=== PATIENT | female | born 1930 ===

== ENCOUNTER 2016-08-11 12:50 | Outpatient (RCR) | payer MEDICARE, BC ==
[~2016-08-11] VITALS: Ht 162.6 cm; Wt 45.4 kg
[2016-08-11] MEDS ORDERED: Lidocaine 4% Top Soln 50ml TOPIC ONE (16:45)
== END 2016-08-23 | disposition home or self-care (01) ==
LOC: WCC 12:50
DX: L89.324 Pressure ulcer of left buttock, stage 4 (principal); M86.9 Osteomyelitis, unspecified; Z79.82 Long term (current) use of aspirin; Z90.710 Acquired absence of both cervix and uterus; G20 Parkinson's disease; M06.9 Rheumatoid arthritis, unspecified
CPT/HCPCS: 11044; 87070; 87181; 87205

== ENCOUNTER → 2016-08-18 | Outpatient (CLI) | payer MEDICARE, BC ==
[~2016-08-18] VITALS: Ht 160 cm; Wt 47.6 kg
[~2016-08-18] MED LIST: Heparin 2000 units/Ns 1000ml INJ ONE; Lidocaine 1% Plain 30 ml INJ ONE; Sodium Bicarbonate 8.4% 50ml Inj IV ONE
--- NOTE | 2016-08-18 15:22 | Diagnostic Imaging Report ---
Indications: Needs long-term IV access Technique: Ultrasound confirms patent compressible left brachial vein. Total sterile technique, including sterile probe cover and sterile gel, hat, mask,, sterile gown, large sterile drape, and preparation with 2% chlorhexidine utilized. Local anesthesia with 1% lidocaine. Under real-time ultrasound guidance, puncture brachial vein using 21-gauge needle, documented and archived, passage 0.018 guidewire under direct fluoroscopy, which was used to determine appropriate catheter length, exchange for 5 Chinese peel-away sheath. 5 Chinese Bard dual-lumen power PICC cut to 35 cm. It was inserted through the peel-away sheath. Peel-away sheath and guidewire removed. Catheter fixed to the skin. Both catheter ports aspirated and flushed. Patient tolerated procedure well, without immediate complication. Digital radiograph documents satisfactory catheter tip position, at the cavoatrial junction. Total fluoroscopy time 0.6 minutes. Total dose area product 8.1 dGycm2 Impression: Successful placement of left arm PICC under sonographic and fluoroscopic guidance, as described above.
--- NOTE | 2016-08-18 15:25 | Diagnostic Imaging Report ---
Indication: PAIN, left buttock wound Technique: IV administration 24.5 mCi 99M technetium MDP. Flow, blood pool, and static images obtained over the pelvis using a dual head scanner Comparison: None Findings: Flow images are unremarkable, do not demonstrate any abnormal hyperemia. Blood pool images are likewise unremarkable, without evidence of any significant increased blood pool activity. Static images demonstrate some obscuration of the pelvic region arteries are within the bladder. Per technologist, patient was unable to void further. However, no abnormal sacral, coccygeal, ischial, or other increased pelvic activity this is demonstrated. Normal renal activity is noted. Impression: No scintigraphic evidence of acute osteomyelitis
--- NOTE | 2016-08-18 21:18 | Consultation ---
DATE OF CONSULTATION: 08/18/2016 INFECTIOUS DISEASES CONSULTATION REQUESTING PHYSICIAN: Que Cheek M.D. REASON FOR CONSULTATION: Left buttock pressure ulcer with underlying osteomyelitis of the ischium due to Proteus mirabilis and Klebsiella pneumonia. Recommendation for antibiotics treatment. HISTORY OF PRESENT ILLNESS: The patient is an 86-year-old female with a past medical history of Parkinson disease and rheumatoid arthritis, who had left buttock and sacral stage IV pressure ulcer for long time was managed by wound care surgeons as an outpatient and transferred her care to [facility] wound care recently. The patient had deep culture done from her left buttock wound grew two different strain bacteria including Proteus mirabilis and Klebsiella pneumonia. her wound was not getting better with local wound care. So, I was consulted by the wound care provider for antibiotics recommendation regarding her left buttock decubitus wound infection with possible underlying osteomyelitis. As the patient is a poor historian, cannot provide good history, history was mainly obtained from the family at the bedside and the nursing staff. REVIEW OF SYSTEMS: Unable to obtain at this point. PAST MEDICAL HISTORY: Significant for Parkinson disease and rheumatoid arthritis. PAST SURGICAL HISTORY: She had hysterectomy and surgical debridement of the left buttock wound. SOCIAL HISTORY: The patient lives with her daughters. Denied any drugs, tobacco, or alcohol. FAMILY HISTORY: Not contributory. ALLERGIES: She has no known drug allergy. MEDICATION: She is on, 1. Remeron. 2. Aspirin. 3. Comtan. 4. Requip. 5. Sinemet. 6. Stalevo. LABORATORY DATA: Laboratories are not available today. Microbiology, the patient had left buttock wound culture grew Proteus mirabilis resistant to quinolone and Bactrim and Klebsiella pneumonia resistant to ampicillin. Radiology, bone scan of the pelvis showed no evidence of acute osteomyelitis in the pelvic area. PHYSICAL EXAMINATION: GENERAL: An elderly female with dementia, lying in bed. Awake, alert, and comfortable, not in distress. HEENT: Normocephalic and atraumatic. Pupils both reactive to light equally. Moist oral mucosa. No exudate. NECK: Supple. No lymphadenopathy. CARDIOVASCULAR: Regular rate and rhythm. No murmur or gallop. LUNGS: Clear bilaterally. No wheezing or rhonchi. ABDOMEN: Soft, nontender, and nondistended. Positive bowel sounds. No hepatosplenomegaly. No ascites. EXTREMITIES: No edema or cyanosis. SKIN: She had left buttock pressure ulcer stage IV, measure about 2 cm in length x 1 cm width x 0.9 cm deep. She had muscle and bone exposed. No tunneling, but undermining has been noted at 12 o'clock with a distance of 2.9 cm. There was also moderate amount of serosanguineous drainage, which has a mild odor. ASSESSMENT AND PLAN: 1. Left buttock pressure ulcer stage IV with possible underlying osteomyelitis, status post surgical debridement with tissue culture positive for Proteus mirabilis and Klebsiella pneumonia. We will treat the patient with ceftriaxone for six weeks with continuous local wound care and debridement as needed. Since her bone is exposed and her wound is deep with tunneling, the patient was advised to keep the wound clean and dry and off-loading all the time. The patient to be continued to monitored by wound care service at [facility] [place]. We will monitor weekly laboratories. Continue local PICC line care as needed as per home health care services. 2. Rheumatoid arthritis, stable. Continue medication. 3. Parkinson disease, stable. Continue medications as before. Follow up with neurology. Jose Chopra M.D. DR: JEZ JOB#: [id number] CC: YU
== END | disposition home or self-care (01) ==
LOC: MRI 08-11 14:14 → NUM 09:14
DX: R52 Pain, unspecified (principal); Z79.899 Other long term (current) drug therapy
CPT/HCPCS: 36569; 76937; 78315; A4641; J1644; J2001; J3490

== ENCOUNTER 2016-08-25 11:55 | Outpatient (RCR) | payer MEDICARE, BC ==
[~2016-08-25] VITALS: Ht 162.6 cm; Wt 45.4 kg
[2016-09-15] MEDS ORDERED: Lidocaine 4% Top Soln 50ml TOPIC ONE (17:00)
== END 2016-09-23 | disposition home or self-care (01) ==
LOC: WCC 11:55
DX: L89.324 Pressure ulcer of left buttock, stage 4 (principal); Z90.710 Acquired absence of both cervix and uterus; M06.9 Rheumatoid arthritis, unspecified; G20 Parkinson's disease; Z79.82 Long term (current) use of aspirin
CPT/HCPCS: 11043; 11044; 11100; 87070; 87181; 87205; 97605

== ENCOUNTER → 2016-09-01 | Outpatient (CLI) | payer MEDICARE, BC ==
[2016-09-01 12:57] LABS: EOSINOPHILS % (AUTO) 2.3 % (0.0-3.0); LYMPHOCYTES % (AUTO) 18.4 % (20.0-45.0); MEAN CORPUSCULAR HGB CONC 31.5 G/DL (32.0-36.0); MEAN CORPUSCULAR VOLUME 92 FL (80-99); MEAN PLATELET VOLUME 6.6 FL (6.5-10.1); MONOCYTES % (AUTO) 8.3 % (1.0-10.0); PLATELET COUNT 410 K/UL (150-450); RED CELL DISTRIBUTION WIDTH 14.9 % (11.6-14.8); WHITE BLOOD COUNT 6.8 K/UL (4.8-10.8)
[2016-09-01 13:23] LABS: ALANINE AMINOTRANSFERASE 5 U/L (3-33); ALBUMIN/GLOBULIN RATIO 1.1 (1.0-2.7); ANION GAP 15 (5-15); ASPARTATE AMINO TRANSFERASE 22 U/L (5-40); CARBON DIOXIDE 26 mEQ/L (20-30); CHLORIDE 96 mEQ/L (98-107); CREATININE 0.5 mg/dL (0.5-0.9); HEMOLYSIS 8; POTASSIUM 4.1 mEQ/L (3.4-4.9); SODIUM 137 mEQ/L (135-145); TOTAL PROTEIN 6.4 g/dL (6.6-8.7)
--- NOTE | 2016-09-01 16:08 | Infectious Diseases Prog Note ---
Assessment/Plan Problems: (1) Buttock wound Assessment & Plan: of the left buttock , with undermining, her wound culture grew proteus mirabilis , and klebsiella pneumonia both sensitive to ceftriaxon , will treat for 6 weeks with ceftriaxon and flagyl , since her wound is deep with undermining , recommend deep tissue culture and surgical debridement, continue local wound care as per wound care. (2) Rheumatoid arthritis Assessment & Plan: continue medications and follow up with rheumatology (3) Parkinson disease Assessment & Plan: continue meds , follow up with neurology Subjective Constitutional: Denies: anorexia, chills, drenching sweats, fatigue, fever, no symptoms, other HEENT: Denies: congestion, coryza, dysphagia, hearing change, no symptoms, other, visual change Respiratory: Denies: dry cough, no symptoms, other, productive cough, shortness of breath Cardiovascular: Denies: chest pain, dyspnea on exertion, no symptoms, other, palpitations Gastrointestinal/Abdominal: Denies: bloating, blood in stool, constipation, diarrhea, nausea, no symptoms, other, vomiting Genitourinary: Denies: dysuria, frequency, hematuria, last menstrual period, no symptoms, nocturia, other, vaginal bleed/discharge Neurologic: Reports: weakness Psychiatric: Denies: anxiety, depression, no symptoms, other Skin: Reports: ulcer Allergies: Coded Allergies: NO KNOWN DRUG ALLERGIES (Verified Allergy, Unknown, 08/11/16) Objective General Appearance: WD/WN, no acute distress HEENT: normocephalic, atraumatic, anicteric, mucous membranes moist Respiratory/Chest: chest wall non-tender, lungs clear, normal breath sounds, no respiratory distress, no accessory muscle use Cardiovascular: normal peripheral pulses, normal rate, regular rhythm, no gallop/murmur Abdomen: normal bowel sounds, soft, non tender, no organomegaly, non distended , no mass Extremities: no cyanosis, no clubbing Skin: no rash, no lesions, ulcers - left buttock wound with undermining Laboratory Tests Test 09/01/16 12:41 White Blood Count 6.8 K/UL (4.8-10.8) Red Blood Count 4.00 M/UL (4.20-5.40) L Hemoglobin 11.6 G/DL (12.0-16.0) L Hematocrit 36.9 % (37.0-47.0) L Mean Corpuscular Volume 92 FL (80-99) Mean Corpuscular Hemoglobin 29.0 PG (27.0-31.0) Mean Corpuscular Hemoglobin Concent 31.5 G/DL (32.0-36.0) L Red Cell Distribution Width 14.9 % (11.6-14.8) H Platelet Count 410 K/UL (150-450) Mean Platelet Volume 6.6 FL (6.5-10.1) Neutrophils (%) (Auto) 70.0 % (45.0-75.0) Lymphocytes (%) (Auto) 18.4 % (20.0-45.0) L Monocytes (%) (Auto) 8.3 % (1.0-10.0) Eosinophils (%) (Auto) 2.3 % (0.0-3.0) Basophils (%) (Auto) 1.0 % (0.0-2.0) Sodium Level 137 mEQ/L (135-145) Potassium Level 4.1 mEQ/L (3.4-4.9) Chloride Level 96 mEQ/L (98-107) L Carbon Dioxide Level 26 mEQ/L (20-30) Anion Gap 15 (5-15) Blood Urea Nitrogen 17 mg/dL (7-23) Creatinine 0.5 mg/dL (0.5-0.9) Estimat Glomerular Filtration Rate mL/min (>60) Glucose Level 120 mg/dL (74-106) H Calcium Level 9.0 mg/dL (8.6-10.2) Total Bilirubin 0.2 mg/dL (0.0-1.2) Aspartate Amino Transf (AST/SGOT) 22 U/L (5-40) Alanine Aminotransferase (ALT/SGPT) 5 U/L (3-33) Alkaline Phosphatase 75 U/L (35-104) Total Protein 6.4 g/dL (6.6-8.7) L Albumin 3.4 g/dL (3.5-5.2) L Globulin 3.0 g/dL Albumin/Globulin Ratio 1.1 (1.0-2.7) Jose Chopra M.D. Sep 01, 2016 16:08
--- NOTE | 2016-09-08 17:17 | Infectious Diseases Prog Note ---
Assessment/Plan Problems: (1) Osteomyelitis of pelvic region Assessment & Plan: with bone culture positive for klebsiella oxytoca and enterococcus faecalis amp sensitive , will start vancomycin for 6 weeks , and monitor trough to keep between 15-20. continue local wound care and off loading (2) Buttock wound Assessment & Plan: of the left buttock , with undermining, her wound culture grew proteus mirabilis , and klebsiella pneumonia both sensitive to ceftriaxon , will treat for 6 weeks with ceftriaxon and flagyl , since her wound is deep with undermining , continue local wound care as per wound care team . (3) Rheumatoid arthritis Assessment & Plan: continue medications and follow up with rheumatology (4) Parkinson disease Assessment & Plan: continue meds , follow up with neurology Subjective Constitutional: Denies: anorexia, chills, drenching sweats, fatigue, fever, no symptoms, other HEENT: Denies: congestion, coryza, dysphagia, hearing change, no symptoms, other, visual change Respiratory: Denies: dry cough, no symptoms, other, productive cough, shortness of breath Breasts: Denies: discharge, no symptoms, other, swelling, tenderness Cardiovascular: Denies: chest pain, dyspnea on exertion, no symptoms, other, palpitations Gastrointestinal/Abdominal: Denies: bloating, blood in stool, constipation, diarrhea, nausea, no symptoms, other, vomiting Genitourinary: Denies: dysuria, frequency, hematuria, last menstrual period, no symptoms, nocturia, other, vaginal bleed/discharge Neurologic: Denies: confusion, headache, no symptoms, numbness, other, weakness Psychiatric: Denies: anxiety, depression, no symptoms, other Skin: Reports: ulcer Allergies: Coded Allergies: NO KNOWN DRUG ALLERGIES (Verified Allergy, Unknown, 08/11/16) Objective General Appearance: WD/WN, no acute distress HEENT: normocephalic, atraumatic, anicteric, mucous membranes moist Respiratory/Chest: chest wall non-tender, lungs clear, normal breath sounds, no respiratory distress, no accessory muscle use Cardiovascular: normal peripheral pulses, normal rate, regular rhythm, no gallop/murmur Abdomen: normal bowel sounds, soft, non tender, no organomegaly, non distended , no mass Extremities: no cyanosis, no clubbing Skin: no rash, no lesions, ulcers - left buttock wound with undermining Jose Chopra M.D. Sep 08, 2016 17:17
--- NOTE | 2016-09-22 17:14 | Infectious Diseases Prog Note ---
Assessment/Plan Problems: (1) Osteomyelitis of pelvic region Assessment & Plan: with bone culture positive for klebsiella oxytoca and enterococcus faecalis amp sensitive , will continue vancomycin for 6 weeks , and monitor trough to keep between 15-20. continue local wound care and off loading as needed, further management is as per wound care clinic, patient had vancomycin trough of 5.1 , daughters have been objecting increasing vancomycin dose , with concern regarding the accuracy of the labs results, I have reassured them and explained to them the need to increase her vancomycin dose in order to achieve therapeutic level between 15-20, they understood. I have contacted the outpatient pharmacist to increase her vancomycin dose,and repeat her trough next week. (2) Buttock wound Assessment & Plan: on the left buttock , with undermining, her wound culture grew proteus mirabilis , and klebsiella pneumonia both sensitive to ceftriaxon which she will receive for 6 weeks with flagyl , since her wound is deep with undermining , continue local wound care as per wound care team . she had improvement in her wound as per the wound care nurse, and she had wound vac placed today (3) Rheumatoid arthritis Assessment & Plan: continue medications and follow up with rheumatology (4) Parkinson disease Assessment & Plan: continue meds , follow up with neurology Subjective Constitutional: Denies: anorexia, chills, drenching sweats, fatigue, fever, no symptoms, other HEENT: Denies: congestion, coryza, dysphagia, hearing change, no symptoms, other, visual change Respiratory: Denies: dry cough, no symptoms, other, productive cough, shortness of breath Breasts: Denies: discharge, no symptoms, other, swelling, tenderness Cardiovascular: Denies: chest pain, dyspnea on exertion, no symptoms, other, palpitations Gastrointestinal/Abdominal: Denies: bloating, blood in stool, constipation, diarrhea, nausea, no symptoms, other, vomiting Genitourinary: Denies: dysuria, frequency, hematuria, last menstrual period, no symptoms, nocturia, other, vaginal bleed/discharge Neurologic: Denies: confusion, headache, no symptoms, numbness, other, weakness Psychiatric: Denies: anxiety, depression, no symptoms, other Skin: Denies: no symptoms, other, rash, ulcer Endocrine: Denies: feels cold, feels warm, no symptoms, other Allergies: Coded Allergies: NO KNOWN DRUG ALLERGIES (Verified Allergy, Unknown, 08/11/16) Objective General Appearance: WD/WN, no acute distress HEENT: normocephalic, atraumatic, anicteric, mucous membranes moist Respiratory/Chest: chest wall non-tender, lungs clear, normal breath sounds, no respiratory distress, no accessory muscle use Cardiovascular: normal peripheral pulses, normal rate, regular rhythm, no gallop/murmur Abdomen: normal bowel sounds, soft, non tender, no organomegaly, non distended , no mass Extremities: no cyanosis, no clubbing Skin: no rash, ulcers Jose Chopra M.D. Sep 22, 2016 17:14
== END | disposition home or self-care (01) ==
LOC: LAB 12:30
DX: E87.5 Hyperkalemia (principal)
CPT/HCPCS: 36415; 80053; 85025

== ENCOUNTER 2016-09-29 11:30 | Outpatient (RCR) | payer MEDICARE, BC ==
--- NOTE | 2016-10-13 17:04 | Infectious Diseases Prog Note ---
Assessment/Plan Problems: (1) Buttock wound Assessment & Plan: continue vancomycin and local wound care, further management as per wound care clinic (2) Osteomyelitis of pelvic region Assessment & Plan: continue vancomycin and local wound care, with offloading , further management as per wound care (3) Rheumatoid arthritis Assessment & Plan: continue meds , follow up with rheumatology Subjective Constitutional: Reports: no symptoms HEENT: Reports: no symptoms Respiratory: Reports: no symptoms Cardiovascular: Reports: no symptoms Gastrointestinal/Abdominal: Reports: no symptoms Genitourinary: Reports: no symptoms Neurologic: Reports: no symptoms Psychiatric: Reports: no symptoms Skin: Reports: no symptoms Allergies: Coded Allergies: NO KNOWN DRUG ALLERGIES (Verified Allergy, Unknown, 08/11/16) Objective General Appearance: WD/WN, no acute distress HEENT: normocephalic, atraumatic, anicteric, mucous membranes moist Respiratory/Chest: chest wall non-tender, lungs clear, normal breath sounds, no respiratory distress, no accessory muscle use Cardiovascular: normal peripheral pulses, normal rate, regular rhythm, no gallop/murmur Abdomen: normal bowel sounds, soft, non tender, no organomegaly, non distended , no mass Extremities: no cyanosis, no clubbing Skin: no rash, no lesions, ulcers Jose Chopra M.D. Oct 13, 2016 17:04
== END 2016-10-23 | disposition home or self-care (01) ==
LOC: WCC 11:30
DX: L89.324 Pressure ulcer of left buttock, stage 4 (principal); Z90.710 Acquired absence of both cervix and uterus; G20 Parkinson's disease; M06.9 Rheumatoid arthritis, unspecified; Z79.82 Long term (current) use of aspirin
CPT/HCPCS: 11043; 11044

== ENCOUNTER 2016-10-27 11:51 | Outpatient (RCR) | payer MEDICARE, BC ==
[~2016-10-27] VITALS: Ht 162.6 cm; Wt 45.4 kg
[2016-10-28] MEDS ORDERED: Lidocaine HCl 2% Jelly 5ml Tube TOPIC ONE (12:15)
--- NOTE | 2016-11-04 17:11 | Infectious Diseases Prog Note ---
Assessment/Plan Problems: (1) Buttock wound Assessment & Plan: infected with E faecalis and klebsiella oxytoca, S/P treatment with vancomycin for 7 weeks, and ceftriaxon with flagyl for 6 weeks, showed significant improvement. she still needs wound flap to prevent contamination with GI/ suzanne. daughters refused surgery for wound flap . they are aware of the risk of not doing the flap, including but not limited to recurrent wound infection, chronic osteomyelitis, and sepsis. at this point will stop her antibiotics she she is done with her course of therapy. plan of care was discussed with the surgeon, daughters and the nurse at the bedside. (2) Osteomyelitis of pelvic region Assessment & Plan: due to E faecalis and K. oxytoca, S/P 7weeks of vancomycin and 6 weeks of flagyl and ceftriaxon, improved. recommend wound flap to prevent contamination and recurrent osteomyelitis . daughters refused Subjective Constitutional: Reports: no symptoms HEENT: Reports: no symptoms Respiratory: Reports: no symptoms Cardiovascular: Reports: no symptoms Gastrointestinal/Abdominal: Reports: no symptoms Genitourinary: Reports: no symptoms Neurologic: Reports: weakness Psychiatric: Reports: no symptoms Skin: Reports: ulcer Allergies: Coded Allergies: NO KNOWN DRUG ALLERGIES (Verified Allergy, Unknown, 08/11/16) Objective General Appearance: WD/WN, no acute distress HEENT: normocephalic, atraumatic, anicteric, mucous membranes moist Respiratory/Chest: chest wall non-tender, lungs clear, normal breath sounds, no respiratory distress, no accessory muscle use Cardiovascular: normal peripheral pulses, normal rate, regular rhythm, no gallop/murmur Abdomen: normal bowel sounds, soft, non tender, no organomegaly, non distended , no mass Extremities: no cyanosis, no clubbing Skin: ulcers Jose Chopra M.D. November 04, 2016 17:11
[2016-11-10] MEDS ORDERED: Lidocaine HCl 2% Jelly 5ml Tube TOPIC ONE (17:00)
[2016-11-23] MEDS ORDERED: Lidocaine HCl 2% Jelly 5ml Tube TOPIC ONE (16:45)
== END 2016-11-23 | disposition home or self-care (01) ==
LOC: WCC 11:51
DX: L89.324 Pressure ulcer of left buttock, stage 4 (principal); M46.28 Osteomyelitis of vertebra, sacral and sacrococcygeal region; G20 Parkinson's disease; M06.9 Rheumatoid arthritis, unspecified; Z79.82 Long term (current) use of aspirin
CPT/HCPCS: 11043; 97605

== ENCOUNTER 2016-12-01 11:47 | Outpatient (RCR) | payer MEDICARE, BC ==
[~2016-12-01] VITALS: Ht 162.6 cm; Wt 45.4 kg
[2016-12-02] MEDS ORDERED: Lidocaine HCl 2% Jelly 5ml Tube TOPIC ONE (15:00)
== END 2016-12-23 | disposition home or self-care (01) ==
LOC: WCC 11:47
DX: L89.324 Pressure ulcer of left buttock, stage 4 (principal); Z90.710 Acquired absence of both cervix and uterus; G20 Parkinson's disease; M06.9 Rheumatoid arthritis, unspecified; Z79.82 Long term (current) use of aspirin
CPT/HCPCS: 11043; 11044

== ENCOUNTER 2016-12-29 10:42 | Outpatient (CLI) | payer BC, MEDICARE ==
[2016-12-29 11:56] LABS: ANION GAP 18 (5-15); CALCIUM 9.5 mg/dL (8.6-10.2); CARBON DIOXIDE 22 mEQ/L (20-30); CHLORIDE 100 mEQ/L (98-107); CREATININE 0.4 mg/dL (0.5-0.9); HEMOLYSIS 2; SODIUM 140 mEQ/L (135-145)
--- NOTE | 2016-12-29 14:34 | Diagnostic Imaging Report ---
Indication: Decubitus ulcer. Asked to perform imaging of the sacrum/coccyx in the area of the decubitus ulcer followed by a sinogram Technique: Continuous helical transaxial imaging of the pelvis was obtained from the iliac crest to below the coccyx. Coronal and sagittal thin 2-D reformats were also obtained. Study obtained in a Siemens sensation [address] Intravenous non-ionic contrast was administered. After injection of water-soluble contrast into the decubitus ulcer, limited transaxial images of the sinus tract obtained. 2-D reformats obtained. Total Dose length Product (DLP): [address] Dose Index Volume (CTDIvol): 0.15, 11.96, 11.96, 12.17, 13.01 mGy Comparison: None Findings: CT images performed before the sinogram demonstrated a prominent decubitus ulcer posterior to the lower part of the sacrum associated with skin thickening and well demonstrated fluid and air filled sinus tract terminating just posterior to the lower sacrum at about the level of S5. Injection of this sinus tract with water-soluble contrast material demonstrates a 2.7 x 1.7 x 2.0 cm sinus tract (craniocaudal, transverse, AP dimensions respectively). Injection was performed with a 4 Hungarian Kumpe catheter which was inserted into the sinus. The catheter was directed posterior to anterior easily entering the sinus tract and appeared to curve toward the right. Series 12 and 13 best demonstrate the sinogram findings. In terms of the question of osteomyelitis, the modality of CT itself is limited and diagnosis of osteomyelitis is only possible when osteomyelitis is advanced when one sees cortical destruction. MRI and bone scan are much more sensitive for earlier stages of osteomyelitis. Having said that, the current CT exam does not show evidence of cortical destruction involving S5, the sacral cornua/hiatus region which is adjacent to the terminus of the sinus tract. Remainder of the sacrum and coccyx appears intact. There is no obvious periostitis. Other incidental findings on this examination include generalized osteopenia, partial fusion of the sacroiliac joints presumably on the basis of degenerative arthritis and lower lumbar facet arthropathy, vacuum disc phenomena with narrowing and hypertrophic endplate spurs. Arterial vascular calcifications are noted. Partially imaged cortical and parapelvic right renal cysts are noted. Gallstones are present. Extensive fecal retention noted within the visualized colon and rectum. Some apparent fluid noted within the vaginal vault. The uterus is not seen. The urinary bladder is nondistended but there may be mild wall thickening. Subcutaneous soft tissue stranding noted lateral to the right greater trochanter. No obvious ulceration in this location. Please correlate clinically. Degenerative osteoarthritis of both hips noted. Impression: Sinogram showing 2.7 x 1.7 x 2.0 cm sinus tract. The anterior most aspect of the sinus tract is adjacent to the sacral hiatus at S5. No definite CT evidence of sacrococcygeal osteomyelitis keeping in mind MR and three-phase bone scan are more sensitive for osteomyelitis diagnosis. Incidental findings include gallstones, multiple cysts within the right kidney, extensive fecal retention, suggestion of cystitis, apparent hysterectomy, osteoporosis, osteoarthritis of both hips, lower lumbar spondylosis, partially fused sacroiliac joints, and atherosclerotic vascular disease. The CT scanner at [facility] is accredited by the [employer] and the scans are performed using dose optimization techniques as appropriate to a performed exam including Automatic Exposure control.
== END 2016-12-29 12:42 | disposition home or self-care (01) ==
LOC: CAT 10:42
DX: M86.9 Osteomyelitis, unspecified (principal); K80.80 Other cholelithiasis without obstruction; N28.1 Cyst of kidney, acquired; K59.00 Constipation, unspecified; M16.0 Bilateral primary osteoarthritis of hip; I70.90 Unspecified atherosclerosis; M81.0 Age-related osteoporosis without current pathological fracture; M47.896 Other spondylosis, lumbar region
CPT/HCPCS: 36415; 72193; 80048; 84134; Q9967

== ENCOUNTER 2016-12-29 13:10 | Outpatient (RCR) | payer MEDICARE, BC ==
[~2016-12-29] VITALS: Ht 162.6 cm; Wt 45.4 kg
[2017-01-06] MEDS ORDERED: Lidocaine/Epinephrine 2% 20 ML VIAL IV ONE (09:45)
[2017-01-06] MEDS ORDERED: Silver Nitrate Stick TOPIC ONE (11:00)
== END 2017-01-23 | disposition home or self-care (01) ==
LOC: WCC 13:10
DX: L89.324 Pressure ulcer of left buttock, stage 4 (principal); M46.28 Osteomyelitis of vertebra, sacral and sacrococcygeal region; G20 Parkinson's disease; Z79.82 Long term (current) use of aspirin; M06.9 Rheumatoid arthritis, unspecified; Z90.710 Acquired absence of both cervix and uterus
CPT/HCPCS: 10060; 11043; G0463

== ENCOUNTER 2017-01-26 12:00 | Outpatient (RCR) | payer MEDICARE, BC | END 2017-02-23 | disposition home or self-care (01) | LOC: WCC 12:00 | DX: L89.324 Pressure ulcer of left buttock, stage 4 (principal); M46.28 Osteomyelitis of vertebra, sacral and sacrococcygeal region; G20 Parkinson's disease; Z79.82 Long term (current) use of aspirin; M06.9 Rheumatoid arthritis, unspecified; Z90.710 Acquired absence of both cervix and uterus | CPT/HCPCS: 11043; 15271; 97605; Q4133 ==

== ENCOUNTER 2017-03-01 13:19 | Outpatient (RCR) | payer MEDICARE, BC ==
[~2017-03-01] VITALS: Ht 162.6 cm; Wt 45.4 kg
== END 2017-03-25 | disposition home or self-care (01) ==
LOC: WCC 13:19
DX: L89.324 Pressure ulcer of left buttock, stage 4 (principal); M46.28 Osteomyelitis of vertebra, sacral and sacrococcygeal region; G20 Parkinson's disease; M06.9 Rheumatoid arthritis, unspecified; Z79.82 Long term (current) use of aspirin
CPT/HCPCS: 11043; 15275; 97605; Q4132

== ENCOUNTER 2017-03-30 11:54 | Outpatient (RCR) | payer MEDICARE, BC | END 2017-04-25 | disposition home or self-care (01) | LOC: WCC 11:54 | DX: L89.324 Pressure ulcer of left buttock, stage 4 (principal); Z90.710 Acquired absence of both cervix and uterus; G20 Parkinson's disease; M06.9 Rheumatoid arthritis, unspecified; Z79.82 Long term (current) use of aspirin | CPT/HCPCS: 15275; 97605; Q4133 ==

== ENCOUNTER 2017-04-27 11:53 | Outpatient (RCR) | payer MEDICARE, BC ==
[~2017-04-27] VITALS: Ht 162.6 cm; Wt 45.4 kg
[2017-05-26] MEDS ORDERED: Lidocaine/Epi 1% 10ml vial INJ ONE (10:30)
== END 2017-05-25 | disposition home or self-care (01) ==
LOC: WCC 11:53
DX: L89.324 Pressure ulcer of left buttock, stage 4 (principal); L02.01 Cutaneous abscess of face; Z90.710 Acquired absence of both cervix and uterus; G20 Parkinson's disease; M06.9 Rheumatoid arthritis, unspecified; Z79.82 Long term (current) use of aspirin
CPT/HCPCS: 10060; 11042; 11043

== ENCOUNTER 2017-06-08 11:03 | Outpatient (RCR) | payer MEDICARE, BC ==
[~2017-06-08] VITALS: Ht 162.6 cm; Wt 45.4 kg
== END 2017-06-25 | disposition home or self-care (01) ==
LOC: WCC 11:03
DX: L89.324 Pressure ulcer of left buttock, stage 4 (principal); G20 Parkinson's disease; Z90.710 Acquired absence of both cervix and uterus; M06.9 Rheumatoid arthritis, unspecified; Z79.82 Long term (current) use of aspirin
CPT/HCPCS: 11043

== ENCOUNTER 2017-07-06 10:51 | Outpatient (RCR) | payer MEDICARE, BC ==
[~2017-07-06] VITALS: Ht 162.6 cm; Wt 45.4 kg
== END 2017-07-26 | disposition home or self-care (01) ==
LOC: WCC 10:51
DX: L89.324 Pressure ulcer of left buttock, stage 4 (principal); G20 Parkinson's disease; Z79.82 Long term (current) use of aspirin
CPT/HCPCS: 11043

== ENCOUNTER 2017-08-16 12:41 | Outpatient (RCR) | payer MEDICARE, BC | END 2017-08-23 | disposition home or self-care (01) | LOC: WCC 12:41 | DX: L89.324 Pressure ulcer of left buttock, stage 4 (principal); M46.28 Osteomyelitis of vertebra, sacral and sacrococcygeal region; Z90.710 Acquired absence of both cervix and uterus; G20 Parkinson's disease; M06.9 Rheumatoid arthritis, unspecified; Z79.82 Long term (current) use of aspirin | CPT/HCPCS: C5271; Q4102 ==

== ENCOUNTER 2017-08-24 11:35 | Outpatient (RCR) | payer MEDICARE, BC | END 2017-09-23 | disposition home or self-care (01) | LOC: WCC 11:35 | DX: L89.324 Pressure ulcer of left buttock, stage 4 (principal); G20 Parkinson's disease; Z90.710 Acquired absence of both cervix and uterus; M06.9 Rheumatoid arthritis, unspecified; Z79.82 Long term (current) use of aspirin; Z79.01 Long term (current) use of anticoagulants | CPT/HCPCS: 11042; C5275; G0463; Q4102 ==

== ENCOUNTER 2017-10-26 12:20 | Outpatient (RCR) | payer MEDICARE, BC ==
[~2017-10-26] VITALS: Ht 167.6 cm; Wt 68.0 kg
== END 2017-11-23 | disposition home or self-care (01) ==
LOC: WCC 12:20
DX: L89.220 Pressure ulcer of left hip, unstageable (principal); G20 Parkinson's disease; M06.9 Rheumatoid arthritis, unspecified; Z90.710 Acquired absence of both cervix and uterus
CPT/HCPCS: 11042; 11043

== ENCOUNTER 2020-01-29 10:46 | Outpatient (RCR) | payer MEDICARE, BC | END 2020-02-24 | disposition home or self-care (01) | LOC: WCC 10:46 | DX: L89.153 Pressure ulcer of sacral region, stage 3 (principal); L97.10 Non-pressure chronic ulcer of unspecified thigh; E43 Unspecified severe protein-calorie malnutrition; R64 Cachexia; Z90.710 Acquired absence of both cervix and uterus; G20 Parkinson's disease; M06.9 Rheumatoid arthritis, unspecified | CPT/HCPCS: 11043; 15275; C5271; G0463; Q4103 ==

== ENCOUNTER 2020-02-26 10:40 | Outpatient (RCR) | payer MEDICARE, BC | END 2020-03-25 | disposition home or self-care (01) | LOC: WCC 10:40 | DX: L89.153 Pressure ulcer of sacral region, stage 3 (principal); L97.10 Non-pressure chronic ulcer of unspecified thigh; E43 Unspecified severe protein-calorie malnutrition; R64 Cachexia; G20 Parkinson's disease; M06.9 Rheumatoid arthritis, unspecified | CPT/HCPCS: 11043; 15271; Q4103 ==

== ENCOUNTER 2020-04-08 10:40 | Outpatient (RCR) | payer MEDICARE, BC | END 2020-04-25 | disposition home or self-care (01) | LOC: WCC 10:40 | DX: L89.153 Pressure ulcer of sacral region, stage 3 (principal); E43 Unspecified severe protein-calorie malnutrition; R64 Cachexia; Z90.710 Acquired absence of both cervix and uterus; G20 Parkinson's disease; M06.9 Rheumatoid arthritis, unspecified | CPT/HCPCS: 11043 ==

== ENCOUNTER 2020-05-13 13:05 | Outpatient (RCR) | payer MEDICARE, BC | END 2020-05-25 | disposition home or self-care (01) | LOC: WCC 13:05 | DX: L89.153 Pressure ulcer of sacral region, stage 3 (principal); L89.896 Pressure-induced deep tissue damage of other site; E43 Unspecified severe protein-calorie malnutrition; R64 Cachexia; G20 Parkinson's disease; M06.9 Rheumatoid arthritis, unspecified | CPT/HCPCS: 11043 ==